=== PATIENT | female | born 1965 | race Caucasian/White ===

== ENCOUNTER → 2024-10-05 | Outpatient (CLI) | payer OTHER ==
[~2024-10-05] MED LIST: AMLODIPINE5 MG PO; ANTIVERT25 MG PO; ASPIRIN81 M1 PO; HYDROCHLOROTHIA25 MG PO; KEFLEX500 MG PO; LISINOPRIL10 MG PO; MEDROL DOSEPAK4 MG PO; METOPROLOL SR25 MG PO; PRILOSEC20 MG PO; ZOFRAN ODT4 MG SL
== END | disposition home or self-care (01) ==
LOC: RAD 13:54
PROVIDERS: ATTEND Family Medicine
DX: M19.071 Primary osteoarthritis, right ankle and foot (principal)